=== PATIENT | female | born 1955 | race Caucasian/White ===

== ENCOUNTER 2016-05-23 16:14 | Inpatient (IN) ==
[2016-05-23] MEDS ORDERED: 0.9 % SODIUM CHLORIDE 1,000 ML IV ONE (16:54)
[2016-05-23] MEDS ORDERED: LEVOFLOXACIN 750 MG/150 ML BAG IV ONE (16:57)
[2016-05-23] MEDS ORDERED: VANCOMYCIN 1,000 MG in 0.9 % SODIUM CHLORIDE 250 ML IV ONE (16:58)
[2016-05-23 17:54] LABS: Basophils # (Auto) 0 K/mcL (0.0-0.3); Basophils % (Auto) 0 % (0.0-2.0); Eosinophils # (Auto) 0.1 K/mcL (0.0-0.7); Eosinophils % (Auto) 0.4 % (0.0-7.0); Granulocytes % (Auto) 92.3 % (38.0-78.0); Lymphocytes # (Auto) 0.6 K/mcL (1.5-4.8); Lymphocytes % (Auto) 3.2 % (15.5-49.0); Mean Cell Volume 81.1 fL (80.0-100.0); Mean Corpuscular HGB Conc 32.2 g/dL (31.0-36.0); Mean Corpuscular Hemoglobin 26.1 pg (26.0-34.0); Monocytes # (Auto) 0.7 K/mcL (0.1-0.9); Monocytes % (Auto) 4.1 % (1.0-9.0); Platelet Count 350 K/mcL (140-440); Red Cell Distribution Width 14.9 % (11.5-14.5)
[2016-05-23 18:21] LABS: ALT/SGPT 14 U/l (0-40); Albumin 3.6 gm/dL (3.2-5.2); Albumin/Globulin Ratio 0.9 (1.0-2.3); Alkaline Phosphatase 107 U/L (39-117); Blood Urea Nitrogen 15 mg/dl (8-23); C-Reactive Protein 22.7 mg/dl (0.0-0.8)
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
[2016-05-23] MEDS ORDERED: MAGNESIUM HYDROXIDE 30 ML ORAL.SUSP PO PRN (19:53)
[2016-05-23] MEDS ORDERED: ONDANSETRON 4 MG/2 ML VIAL IV PRN (19:53)
[2016-05-23] MEDS ORDERED: BISACODYL 10 MG SUPP.RECT PR PRN (19:53)
[2016-05-23] MEDS ORDERED: FLEETS ADULT ENEMA PR PRN (19:53)
[2016-05-23] MEDS ORDERED: BACLOFEN 10 MG TABLET PO PRN (21:00)
[2016-05-23] MEDS: HEPARIN 5,000 UNIT/ML VIAL SQ SCH (21:32)
[2016-05-23] MEDS: OXYBUTYNIN CHLORIDE 5 MG TABLET PO SCH (21:32)
[2016-05-23] MEDS: 0.9 % SODIUM CHLORIDE 1,000 ML IV SCH (21:32)
[2016-05-23] MEDS: 0.9 % SODIUM CHLORIDE 10 ML SYRINGE IV SCH (21:33)
[2016-05-23] MEDS ORDERED: IOPAMIDOL 100 ML BOTTLE IJ ONE (21:37)
[2016-05-23] MEDS: ACETAMINOPHEN 325 MG TABLET PO PRN (23:21)
[2016-05-24] MEDS: OXYBUTYNIN CHLORIDE 5 MG TABLET PO SCH ×4 (02:18→19:58)
[2016-05-24] MEDS: ACETAMINOPHEN 325 MG TABLET PO PRN (05:11)
[2016-05-24] MEDS: 0.9 % SODIUM CHLORIDE 10 ML SYRINGE IV SCH ×3 (05:13→23:14)
[2016-05-24] MEDS ORDERED: TETANUS AND DIPHTHERIA TOX IM ONE (07:39)
[2016-05-24] MEDS: POTASSIUM CHLORIDE 10 MEQ TABLET PO SCH ×3 (07:44→17:57)
--- NOTE | 2016-05-24 08:26 | Cat Scan Report ---
CLINICAL INFORMATION: Fever, cellulitis and abscess in the perineum FINDINGS: The pelvis was imaged following intravenous but no oral contrast from the mid lumbar spine to the mid femurs. Sagittal and coronal reformats were created. There is severe swelling of the right labia majora. There is marked thickening of the skin and edema of the subcutaneous tissues. There is milder edema and inflammation in the skin of the left labia. Within the deep soft tissues of the right labia there are multiple pockets of gas. Along the posterior aspect and adjacent to the inferior portion of the anus, there are small pockets of fluid. The largest is 1.5 x 5.5 cm and is located very close to the right side of the anus. No intrapelvic abscess is present. There are reactive lymph nodes in the right groin. Patient has a suprapubic catheter in the bladder. The bladder is completely decompressed. The uterus has been removed. Neither ovary is visualized. Patient has an ostomy in the left mid abdominal wall. There is no inflammation at the ostomy site, bowel obstruction or ileus. There is no ascites. 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 These Findings are chronic and stable. IMPRESSION: Multiloculated abscess located far posteriorly and deep in the right labia majora, extending to the right side of the anus. There is also gas in the labia indicating necrotizing fasciitis. Interpreted and Authenticated by: Fransisco Mcguire 05/24/16
--- NOTE | 2016-05-24 08:28 | XRay Report ---
HISTORY: Reason for Exam:cough, fever FINDINGS: Right diaphragm is moderately elevated. This is a chronic finding. The lungs are clear, without evidence of pneumonia. The heart size is normal. There are Lomas rods in the mid and lower thoracic spine extending down to the lumbar region. There has been no significant change since 07/19/09. IMPRESSION: Normal exam Interpreted and Authenticated by: Fransisco Mcguire 05/24/16
--- NOTE | 2016-05-24 08:29 | XRay Report ---
HISTORY: Reason for Exam:shoulder pain FINDINGS: No fracture, dislocation or degenerative change are present. There are no abnormal soft tissue calcifications. IMPRESSION: Normal shoulder Interpreted and Authenticated by: Fransisco Mcguire 05/24/16
[2016-05-24] MEDS ORDERED: LISINOPRIL 20 MG TABLET PO SCH (09:00)
[2016-05-24] MEDS ORDERED: amLODIPine 10 MG TABLET PO SCH (09:00)
[2016-05-24] MEDS ORDERED: ATENOLOL 50 MG TABLET PO SCH (09:00)
[2016-05-24] MEDS ORDERED: METOCLOPRAMIDE 10 MG/2 ML VIAL IV ONE (09:14)
[2016-05-24] MEDS ORDERED: FAMOTIDINE/PF 20 MG/2 ML VIAL IV ONE (09:15)
[2016-05-24 09:35] LABS: ALT/SGPT 12 U/l (0-40); Albumin 3.2 gm/dL (3.2-5.2); Alkaline Phosphatase 119 U/L (39-117); Bilirubin,Direct 0.2 mg/dL (0.0-0.3); Blood Urea Nitrogen 9 mg/dl (8-23); Gamma Glutamyl Transpeptidase 119 U/L (5-36); Magnesium 1.6 mg/dL (1.6-2.5); Phosphorous 3.3 mg/dL (2.7-4.5); Uric Acid 5.5 mg/dL (2.5-8.0)
[2016-05-24] MEDS: HEPARIN 5,000 UNIT/ML VIAL SQ SCH ×2 (10:11→19:59)
[2016-05-24] MEDS: CLINDAMYCIN 900 MG in DEXTROSE 5% IN WATER 50 ML IV SCH ×2 (10:21→22:01)
[2016-05-24] MEDS: 0.9 % SODIUM CHLORIDE 1,000 ML IV SCH ×2 (10:22→16:29)
--- NOTE | 2016-05-24 10:45 | Internal Med Progress Note ---
Medical - PN: Subj Patient information: Note initiated : 05/24/16 at 10:40 am Service Date, if different from initiated Date: [] Patient: Tierra Loco 61 y/o F admitted on 05/23/16 for fever, left shoulder pain. Chief Complaint: [] Interval history: This is a 61 yr female admitted to the hospital with fever, likely source of perineal cellutlitis. The patient seen examined , results reviwed with the patient The patient underwent a CT scan of the pelvis region yesterday, reported this AM. The CT notes cellulitis in the pernineal region, along with air in the subcutaneous tissue, with possibility of nectrotizing fascitits. The patient case was discussed with our surgeon Dr hutchins who prompltly evaluated the patient with myself, and determination to debride the wound today was made. The patient will be going to the OR this afternoon. The patient major medical issue is hypertension, she reports pre diabets, but no h/o ckd, cad, cva, chf, her ECG on admission was normal, x ray chest was also reported normal, has no reported cp, but has poor ET given her paraplegic status. nonetheless, the patient will need to be debrided as a emergent procedure. The patient reports chr back pain and left shoulder pain, back pain is a chr issue and resolves with baclofen, left shoulder pain is related to her rotator cuff, X ray shoulder is reported normal. - Constitutional Vitals: Vital Signs Temp Pulse Resp BP Pulse Ox 98.6 F 101 H 16 109/66 91 05/24/16 06:23 05/24/16 06:23 05/24/16 06:23 05/24/16 06:23 05/24/16 06:23 Period Temp Pulse Resp BP Sys/Jennings Pulse Ox Last 24 Hr 98.4 F-99.8 F 84-101 16-18 109-135/62-73 91-97 Intake and Output 05/23/16 05/24/16 05/24/16 21:59 05:59 13:59 Intake Total 1400 / 1400 962 / 962 Output Total 850 / 850 Balance 550 / 550 962 / 962 Weight 209 lb Intake & Output: Intake & Output 05/23/16 05/24/16 05/24/16 21:59 05:59 13:59 Intake Total 1400 / 1400 962 / 962 Output Total 850 / 850 Balance 550 / 550 962 / 962 Weight 209 lb Intake: IV 962 / 962 Sodium Chloride 0.9% 1, 962 / 962 000 ml @ 75 mls/hr IV . [id number] [facility] Rx#:[id number] Oral 1400 / 1400 Output: Urine Catheter Amount 850 / 850 - Head Head exam: Present: atraumatic, normal inspection - Eye Eye exam: Absent: periorbital swelling, periorbital tenderness, scleral icterus - ENT ENT exam: Present: mucous membranes dry, normal exam - Respiratory Respiratory exam: Present: normal respiratory exam. Absent: chest wall tenderness, respiratory distress, rhonchi, stridor, wheezes - Cardiovascular Cardiovascular exam: Present: normal rate and rhythm, +S1, +S2 - GI/Abdominal GI/Abdominal exam: Present: normal bowel sounds, soft. Absent: guarding, rigid , tenderness - Rectal Additional comments: large perianal wound, with a pocket of pus, Cellulitis / swelling and induration extending to the right labial fold, now also some induratio on the left side. - Neurological Exam Neurological exam: Present: alert (paraplegic at baseline, T 9-T10 level), CN II -XII intact, oriented X3 Medical - PN: Obj Da - Labs CBC & Chem 7: 05/24/16 04:55 05/24/16 08:04 Labs: Abnormal Lab Results 05/24/16 08:04 Sodium 132 L Carbon Dioxide 20 L Creatinine 0.5 L Glucose 128 H Calcium 8.4 L GGT 119 H Alkaline Phosphatase 119 H Lactate Dehydrogenase 296 H Meds: Medications Acetaminophen (Tylenol) 650 mg PO Q6HP PRN PRN Reason: PAIN/FEVER > 101 Last Admin: 05/24/16 05:11 Dose: 650 mg Amlodipine Besylate (Norvasc) 10 mg PO DAILY [facility] Last Admin: 05/24/16 10:25 Dose: 10 mg Atenolol (Tenormin) 25 mg PO DAILY [facility] Last Admin: 05/24/16 10:25 Dose: 25 mg Baclofen (Lioresal) 20 mg PO QIDP PRN PRN Reason: Pain Bisacodyl (Dulcolax) 10 mg OK Q2-3DAYS PRN PRN Reason: Constipation Heparin Sodium (Porcine) (Heparin) 5,000 unit SQ Q12 [facility] Last Admin: 05/24/16 10:11 Dose: Not Given Sodium Chloride (Sodium Chloride 0.9%) 1,000 mls @ 75 mls/hr IV .[id number] [facility] Last Admin: 05/24/16 10:22 Dose: 75 mls/hr Clindamycin Phosphate 900 mg/ (Dextrose) 56 mls @ 100 mls/hr IV Q8H [facility] Last Admin: 05/24/16 10:21 Dose: 100 mls/hr Lisinopril (Zestril) 40 mg PO DAILY [facility] Last Admin: 05/24/16 10:22 Dose: 40 mg Magnesium Hydroxide (Milk Of Magnesia) 30 ml PO DAILYP PRN PRN Reason: Constipation Ondansetron HCl (Zofran) 4 mg IV Q6HP PRN PRN Reason: Nausea And Vomiting Oxybutynin Chloride (Ditropan) 5 mg PO Q6H [facility] Last Admin: 05/24/16 07:44 Dose: 5 mg Potassium Chloride (Kdur) 10 meq PO TIDCC [facility] Last Admin: 05/24/16 07:44 Dose: 10 meq Sodium Biphosphate/Sodium Phosphate (Fleets Adult) 1 dose OK Q3-4DAYS PRN PRN Reason: Constipation Sodium Chloride (Saline Flush) 10 ml IV Q8 [facility] Last Admin: 05/24/16 05:13 Dose: Not Given Medical - PN: A/P - Time Spent With Patient Total time spent is greater than 50% in coordination of care (as documented) at patient's floor/unit and/or counseling patient: (1) Decubitus ulcer of perianal region, stage 3 Status: Acute Assessment and plan: Cellulitis and Necrotizing fascitis, Gen surg consulted, Plan for OR today On IV imipenum, Vancomycin, and clindamycin added today Tetanus vaccine ordered. IV fluids Current Visit: Yes (2) Hypertension, essential Status: Chronic Current Visit: No (3) Neurogenic bladder Status: Chronic Assessment and plan: spc in place continue same for now. Current Visit: No (4) Cough Status: Acute Assessment and plan: cxr is negative pt notes this from nasal drainage at times . Current Visit: Yes (5) Shoulder pain, left Status: Acute Assessment and plan: X ray shouder is reported neg h/o rotator cuff chronic injury PT/ for now. Current Visit: Yes Medical - PN: Qual - Stroke Symptom Onset Unknown: No - VTE Deep Vein Thrombosis/Pulmonary Embolism Present on Admission: No
[2016-05-24] MEDS ORDERED: LEVOFLOXACIN 500 MG/100 ML BAG IV ONE (13:45)
[2016-05-24] MEDS ORDERED: ONDANSETRON 4 MG/2 ML VIAL ONE (14:01)
[2016-05-24] MEDS ORDERED: DEXAMETHASONE 10 MG/ML VIAL ONE (14:01)
[2016-05-24] MEDS ORDERED: LIDOCAINE HCL/PF 100 MG/5 ML SYRINGE IV ONE (14:01)
[2016-05-24] MEDS ORDERED: MIDAZOLAM 5 MG/5 ML VIAL ONE (14:01)
[2016-05-24] MEDS ORDERED: PROPOFOL 200 MG/20 ML VIAL IV ONE (14:01)
[2016-05-24 14:29] LABS: Basophils # (Auto) 0 K/mcL (0.0-0.3); Basophils % (Auto) 0 % (0.0-2.0); Eosinophils # (Auto) 0 K/mcL (0.0-0.7); Eosinophils % (Auto) 0.1 % (0.0-7.0); Granulocytes % (Auto) 94.2 % (38.0-78.0); Lymphocytes # (Auto) 0.6 K/mcL (1.5-4.8); Lymphocytes % (Auto) 3.1 % (15.5-49.0); Mean Cell Volume 81.3 fL (80.0-100.0); Mean Corpuscular HGB Conc 32.3 g/dL (31.0-36.0); Mean Corpuscular Hemoglobin 26.2 pg (26.0-34.0); Monocytes # (Auto) 0.5 K/mcL (0.1-0.9); Monocytes % (Auto) 2.6 % (1.0-9.0); Platelet Count 317 K/mcL (140-440); RBC 4.04 M/mcL (4.00-5.20); Red Cell Distribution Width 15.5 % (11.5-14.5)
[2016-05-24] MEDS ORDERED: PROMETHAZINE 25 MG/ML VIAL IV PRN ×2 (14:29→16:07)
[2016-05-24] MEDS ORDERED: BENZOCAINE/MENTHOL 1 LOZENGE PO PRN ×2 (14:29→16:07)
[2016-05-24] MEDS ORDERED: FLUMAZENIL 0.1 MG/ML ML IV PRN ×2 (14:29→16:07)
[2016-05-24] MEDS ORDERED: LACTATED RINGERS 250 ML IV PRN ×2 (14:29→16:07)
[2016-05-24] MEDS ORDERED: METHOCARBAMOL 1,000 MG/10 ML VIAL IV PRN ×2 (14:29→16:07)
[2016-05-24] MEDS ORDERED: NALOXONE HCL 0.4 MG/ML VIAL IV PRN ×2 (14:29→16:07)
[2016-05-24] MEDS ORDERED: ONDANSETRON 4 MG/2 ML VIAL IV PRN ×3 (14:29→16:07)
[2016-05-24] MEDS ORDERED: MEPERIDINE 25 MG/ML SYRINGE IV PRN ×2 (14:29→16:07)
[2016-05-24] MEDS ORDERED: diphenhydrAMINE 50 MG/ML VIAL IV PRN ×2 (14:29→16:07)
[2016-05-24] MEDS ORDERED: fentaNYL 100 MCG/2 ML VIAL IV PRN ×2 (14:29→16:07)
[2016-05-24] MEDS ORDERED: IPRATROPIUM/ALBUTEROL 3 ML AMPUL.NEB NEB PRN ×2 (14:29→16:07)
[2016-05-24] MEDS ORDERED: LACTATED RINGERS 1,000 ML IV SCH ×2 (14:30→16:07)
[2016-05-24 14:45] LABS: Hemoglobin A1C 5.5 % HGB (4.0-6.0)
[2016-05-24] MEDS ORDERED: SODIUM HYPOCHLORITE TOPICAL ONE (14:46)
--- NOTE | 2016-05-24 15:27 | Brief Operative Note ---
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
[2016-05-24] MEDS ORDERED: FLEETS ADULT ENEMA PR PRN (16:07)
[2016-05-24] MEDS ORDERED: BISACODYL 10 MG SUPP.RECT PR PRN (16:07)
[2016-05-24] MEDS ORDERED: MAGNESIUM HYDROXIDE 30 ML ORAL.SUSP PO PRN (16:07)
[2016-05-24] MEDS ORDERED: BACLOFEN 10 MG TABLET PO PRN (16:07)
[2016-05-24] MEDS ORDERED: IMIPENEM/CILASTATIN SODIUM 1,000 MG in 0.9 % SODIUM CHLORIDE 250 ML IV SCH (16:15)
[2016-05-24] MEDS: IMIPENEM/CILASTATIN SODIUM 1,000 MG in 0.9 % SODIUM CHLORIDE 250 ML IV SCH ×2 (16:42→23:13)
[2016-05-24] MEDS ORDERED: SENNOSIDES 1 TABLET PO SCH (21:00)
[2016-05-24] MEDS: DOCUSATE SODIUM 100 MG CAPSULE PO SCH (22:00)
[2016-05-25] MEDS: OXYBUTYNIN CHLORIDE 5 MG TABLET PO SCH ×4 (01:34→21:26)
[2016-05-25] MEDS: CLINDAMYCIN 900 MG in DEXTROSE 5% IN WATER 50 ML IV SCH ×4 (04:29→21:26)
[2016-05-25] MEDS: 0.9 % SODIUM CHLORIDE 10 ML SYRINGE IV SCH ×3 (06:01→21:27)
[2016-05-25] MEDS: IMIPENEM/CILASTATIN SODIUM 1,000 MG in 0.9 % SODIUM CHLORIDE 250 ML IV SCH ×3 (06:01→21:56)
[2016-05-25 07:23] LABS: Basophils # (Auto) 0 K/mcL (0.0-0.3); Basophils % (Auto) 0 % (0.0-2.0); Eosinophils # (Auto) 0 K/mcL (0.0-0.7); Eosinophils % (Auto) 0 % (0.0-7.0); Granulocytes % (Auto) 94.2 % (38.0-78.0); Lymphocytes # (Auto) 0.8 K/mcL (1.5-4.8); Lymphocytes % (Auto) 3.9 % (15.5-49.0); Mean Cell Volume 81.7 fL (80.0-100.0); Mean Corpuscular HGB Conc 31.5 g/dL (31.0-36.0); Mean Corpuscular Hemoglobin 25.7 pg (26.0-34.0); Monocytes # (Auto) 0.4 K/mcL (0.1-0.9); Monocytes % (Auto) 1.9 % (1.0-9.0); Platelet Count 254 K/mcL (140-440); RBC 3.81 M/mcL (4.00-5.20); Red Cell Distribution Width 14.8 % (11.5-14.5)
[2016-05-25 07:42] LABS: ALT/SGPT 12 U/l (0-40); Albumin 2.9 gm/dL (3.2-5.2); Albumin/Globulin Ratio 1.1 (1.0-2.3); Alkaline Phosphatase 107 U/L (39-117); Bilirubin,Direct < 0.2 mg/dL (0.0-0.3); Blood Urea Nitrogen 8 mg/dl (8-23); Gamma Glutamyl Transpeptidase 117 U/L (5-36); Phosphorous 2.7 mg/dL (2.7-4.5); Uric Acid 5.7 mg/dL (2.5-8.0)
--- NOTE | 2016-05-25 08:31 | General Surgery Progress Note ---
Surgical - Auxillary Note - Subjective Patient Information: Note initiated : 05/25/16 at 8:28 am Service Date, if different from initiated Date: [] Patient: Tierra Loco 61 y/o F admitted on 05/23/16 for fever, left shoulder pain. Chief Complaint: Patient resting in bed. Says she is feeling ok except in need of her baclofen. Currently on 20 BID but Says she takes 280mg tid. denies chills. Vital Signs Temp Pulse Resp BP Pulse Ox 99.9 F H 82 18 105/44 96 05/25/16 08:00 05/25/16 08:00 05/25/16 08:00 05/25/16 08:00 05/25/16 08:00 Period Temp Pulse Resp BP Sys/Jennings Pulse Ox Last 24 Hr 97.8 F-99.9 F 79-97 15-25 82-130/39-69 90-97 Intake and Output 05/24/16 05/25/16 05/25/16 21:59 05:59 13:59 Intake Total 876 / 876 1876 / 1876 56 / 56 Output Total 1500 / 1500 Balance 856 / 856 376 / 376 56 / 56 Weight 211 lb 12.8 oz PE: Exam of perineum shows that wound is without new necrotic tissue. wound bed clean. edema of mons pubis persistent but erythema much improved. Wound repacked at bedside with saline moistened Kerlix roll guaze. CBC and Chem 7 05/25/16 04:10 05/25/16 04:10 A/P Fourniere's gangrene. Wound bed clean: no new necrosis on exam. Continue IV Abx.
[2016-05-25] MEDS ORDERED: amLODIPine 10 MG TABLET PO SCH (09:00)
[2016-05-25] MEDS ORDERED: ATENOLOL 50 MG TABLET PO SCH (09:00)
[2016-05-25] MEDS ORDERED: LISINOPRIL 20 MG TABLET PO SCH (09:00)
[2016-05-25] MEDS: 0.9 % SODIUM CHLORIDE 1,000 ML IV SCH ×2 (09:07→19:13)
[2016-05-25] MEDS ORDERED: VANCOMYCIN PER PHARMACY IV ONE (09:07)
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
[2016-05-25] MEDS: POTASSIUM CHLORIDE 10 MEQ TABLET PO SCH ×3 (09:14→17:40)
[2016-05-25] MEDS: BACLOFEN 10 MG TABLET PO SCH ×2 (09:15→15:06)
[2016-05-25] MEDS: DOCUSATE SODIUM 100 MG CAPSULE PO SCH ×2 (09:15→21:26)
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
[2016-05-25] MEDS: HEPARIN 5,000 UNIT/ML VIAL SQ SCH ×2 (09:53→21:26)
[2016-05-25] MEDS ORDERED: VANCOMYCIN 1,000 MG in 0.9 % SODIUM CHLORIDE 250 ML IV SCH (10:00)
[2016-05-25] MEDS ORDERED: BACLOFEN 10 MG TABLET PO PRN (17:54)
[2016-05-25] MEDS ORDERED: BISACODYL 10 MG SUPP.RECT PR PRN (18:17)
[2016-05-25] MEDS ORDERED: ONDANSETRON 4 MG/2 ML VIAL IV PRN (18:17)
[2016-05-25] MEDS ORDERED: MAGNESIUM HYDROXIDE 30 ML ORAL.SUSP PO PRN (18:17)
[2016-05-25] MEDS ORDERED: FLEETS ADULT ENEMA PR PRN (18:17)
[2016-05-25] MEDS ORDERED: SENNOSIDES 1 TABLET PO SCH (21:00)
[2016-05-25] MEDS: BACLOFEN 10 MG TABLET PO PRN (21:34)
[2016-05-25] MEDS: VANCOMYCIN 1,000 MG in 0.9 % SODIUM CHLORIDE 250 ML IV SCH (23:22)
[2016-05-26] MEDS: BACLOFEN 10 MG TABLET PO PRN ×3 (01:21→22:14)
[2016-05-26] MEDS: OXYBUTYNIN CHLORIDE 5 MG TABLET PO SCH ×4 (01:21→22:15)
[2016-05-26] MEDS: CLINDAMYCIN 900 MG in DEXTROSE 5% IN WATER 50 ML IV SCH ×2 (05:38→17:27)
[2016-05-26] MEDS: 0.9 % SODIUM CHLORIDE 10 ML SYRINGE IV SCH ×3 (05:39→22:24)
[2016-05-26] MEDS: IMIPENEM/CILASTATIN SODIUM 1,000 MG in 0.9 % SODIUM CHLORIDE 250 ML IV SCH ×3 (06:05→22:16)
[2016-05-26 07:56] LABS: Basophils # (Auto) 0 K/mcL (0.0-0.3); Basophils % (Auto) 0 % (0.0-2.0); Eosinophils # (Auto) 0 K/mcL (0.0-0.7); Eosinophils % (Auto) 0.1 % (0.0-7.0); Granulocytes % (Auto) 87.8 % (38.0-78.0); Lymphocytes # (Auto) 2.1 K/mcL (1.5-4.8); Lymphocytes % (Auto) 9.4 % (15.5-49.0); Mean Cell Volume 81.9 fL (80.0-100.0); Mean Corpuscular HGB Conc 31.8 g/dL (31.0-36.0); Monocytes # (Auto) 0.6 K/mcL (0.1-0.9); Monocytes % (Auto) 2.7 % (1.0-9.0); Platelet Count 279 K/mcL (140-440); Red Cell Distribution Width 14.9 % (11.5-14.5)
[2016-05-26] MEDS: 0.9 % SODIUM CHLORIDE 1,000 ML IV SCH ×3 (08:10→16:56)
[2016-05-26] MEDS: POTASSIUM CHLORIDE 10 MEQ TABLET PO SCH ×3 (08:12→17:56)
[2016-05-26] MEDS ORDERED: LISINOPRIL 20 MG TABLET PO SCH (09:00)
[2016-05-26] MEDS ORDERED: amLODIPine 10 MG TABLET PO SCH (09:00)
[2016-05-26] MEDS ORDERED: ATENOLOL 50 MG TABLET PO SCH (09:00)
[2016-05-26 09:08] LABS: ALT/SGPT 20 U/l (0-40); Albumin 3.1 gm/dL (3.2-5.2); Albumin/Globulin Ratio 1.3 (1.0-2.3); Alkaline Phosphatase 93 U/L (39-117); Bilirubin,Direct < 0.2 mg/dL (0.0-0.3); Blood Urea Nitrogen 17 mg/dl (8-23); Gamma Glutamyl Transpeptidase 98 U/L (5-36); Phosphorous 2.4 mg/dL (2.7-4.5); Uric Acid 5.6 mg/dL (2.5-8.0)
[2016-05-26] MEDS: DOCUSATE SODIUM 100 MG CAPSULE PO SCH ×2 (09:39→22:15)
[2016-05-26] MEDS: HEPARIN 5,000 UNIT/ML VIAL SQ SCH ×2 (09:40→22:16)
--- NOTE | 2016-05-26 10:51 | General Surgery Progress Note ---
Surgical - Auxillary Note - Subjective Patient Information: Note initiated : 05/26/16 at 10:45 am Service Date, if different from initiated Date: [] Patient: Tierra Loco 61 y/o F admitted on 05/23/16 for fever, left shoulder pain. Chief Complaint: Patient resting in bed. Feeling well. Complains of headache and would like tylenol for this. Baclofen dose adjusted last night. She was initially confused about her dose and mis-reported this after surgery. Vital Signs Temp Pulse Resp BP Pulse Ox 98.3 F 78 16 136/59 95 05/26/16 08:00 05/26/16 08:00 05/26/16 08:00 05/26/16 08:00 05/26/16 08:00 Period Temp Pulse Resp BP Sys/Jennings Pulse Ox Last 24 Hr 98.2 F-99.9 F 71-89 14-18 89-142/51-93 90-97 Intake and Output 05/25/16 05/26/16 05/26/16 21:59 05:59 13:59 Intake Total 1647 / 1647 1102 / 1102 296 / 296 Output Total 600 / 600 1601 / 1601 Balance 1047 / 1047 -499 / -499 296 / 296 Weight 212 lb PE: Patient in no distress. Alert and oriented and appropriate in conversation. Focused exam on the wound shows wound bed remains clean. No new tissue necrosis noted and drainage serous on dressing. Wound bed depth at about 12.5cm into tunnel that extends anteriorly in soft tissue of labia and in depth. Wound redressed with saline moistened to dry AMD guaze packing. Edema of mons and labia persistent but erythema resolving slowly and no crepitus on palpation of these areas. CBC and Chem 7 05/26/16 06:15 05/26/16 06:15 A/P: Right labial wound: s/p debridement. Continue current therapy with antibiotics and moist to dry guaze dressings. May benefit from wound VAC if wound remains clean enough to place but either way will need prolonged wound care. Wound cx. show staph Aureus: susceptibilities pending. Pathology is pending: wound margin sent at surgery to rule out malignancy
[2016-05-26] MEDS ORDERED: ACETAMINOPHEN 325 MG TABLET PO PRN (10:56)
[2016-05-26] MEDS: VANCOMYCIN 1,000 MG in 0.9 % SODIUM CHLORIDE 250 ML IV SCH (11:24)
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
[2016-05-26] MEDS ORDERED: BISACODYL 10 MG SUPP.RECT PR PRN (14:07)
[2016-05-26] MEDS ORDERED: MAGNESIUM HYDROXIDE 30 ML ORAL.SUSP PO PRN (14:07)
[2016-05-26] MEDS ORDERED: FLEETS ADULT ENEMA PR PRN (14:07)
[2016-05-26] MEDS: ACETAMINOPHEN 325 MG TABLET PO PRN ×2 (14:26→22:17)
[2016-05-26] MEDS: metroNIDAZOLE 500 MG/100 ML BAG IV SCH ×2 (16:16→22:16)
[2016-05-26] MEDS ORDERED: IMIPENEM/CILASTATIN SODIUM 500 MG VIAL IV ONE (22:01)
[2016-05-26] MEDS: SENNOSIDES 1 TABLET PO SCH (22:25)
[2016-05-27] MEDS: OXYBUTYNIN CHLORIDE 5 MG TABLET PO SCH ×4 (02:25→21:49)
[2016-05-27 05:31] LABS: Basophils # (Auto) 0 K/mcL (0.0-0.3); Basophils % (Auto) 0.1 % (0.0-2.0); Eosinophils # (Auto) 0.1 K/mcL (0.0-0.7); Eosinophils % (Auto) 0.8 % (0.0-7.0); Granulocytes % (Auto) 84.2 % (38.0-78.0); Lymphocytes % (Auto) 11.4 % (15.5-49.0); Mean Cell Volume 80.3 fL (80.0-100.0); Mean Corpuscular HGB Conc 32.4 g/dL (31.0-36.0); Monocytes # (Auto) 0.6 K/mcL (0.1-0.9); Monocytes % (Auto) 3.5 % (1.0-9.0); Platelet Count 296 K/mcL (140-440); RBC 4.49 M/mcL (4.00-5.20); Red Cell Distribution Width 15.1 % (11.5-14.5)
[2016-05-27] MEDS: IMIPENEM/CILASTATIN SODIUM 1,000 MG in 0.9 % SODIUM CHLORIDE 250 ML IV SCH ×3 (05:33→23:26)
[2016-05-27] MEDS: 0.9 % SODIUM CHLORIDE 10 ML SYRINGE IV SCH ×3 (06:02→23:19)
[2016-05-27] MEDS: 0.9 % SODIUM CHLORIDE 1,000 ML IV SCH ×3 (06:03→18:32)
[2016-05-27 06:09] LABS: ALT/SGPT 20 U/l (0-40); Albumin/Globulin Ratio 0.9 (1.0-2.3); Alkaline Phosphatase 105 U/L (39-117); Bilirubin,Direct < 0.2 mg/dL (0.0-0.3); Blood Urea Nitrogen 18 mg/dl (8-23); Gamma Glutamyl Transpeptidase 92 U/L (5-36); Magnesium 1.8 mg/dL (1.6-2.5); Phosphorous 2.7 mg/dL (2.7-4.5); Uric Acid 5.9 mg/dL (2.5-8.0)
[2016-05-27] MEDS: ONDANSETRON 4 MG/2 ML VIAL IV PRN ×2 (06:42→21:57)
[2016-05-27] MEDS: metroNIDAZOLE 500 MG/100 ML BAG IV SCH ×3 (06:42→21:48)
--- NOTE | 2016-05-27 06:43 | Operative Note ---
DATE OF OPERATION: 05/24/2016 PREOPERATIVE DIAGNOSIS: Perineal abscess with Ludivina's gangrene. POSTOPERATIVE DIAGNOSIS: Perineal abscess with Ludivina's gangrene. PROCEDURE PERFORMED: Debridement of perineal abscess. SURGEON: Karo Motta MD INDICATIONS FOR PROCEDURE: The patient is a 61-year-old woman who is admitted to the hospital last evening with a diagnosis of fever. She had an elevated white blood cell count and elevated CRP on admission. On exam, she was noted to have erythema and edema over the perineal region with an open wound where pus was coming from and the peritoneum posteriorly on the right labia with a caveat that extends anteriorly and necrotic tissue within the wound opening. On CT scan imaging she is noted to have loculated abscess within the right labia with air noted within the soft tissues of this region. She is brought to the operating room for debridement. DESCRIPTION OF PROCEDURE: After obtaining consent, the patient was taken to the operating room where a time-out was taken to confirm that she was here for the above-stated procedure. She was placed in the supine position on the operating table and general endotracheal anesthesia was induced. She was given antibiotics preoperatively. She was placed in lithotomy position. The perineum was prepped and draped in a sterile manner. The opening within the right posterior labia was palpated with a finger and this led directly into the cavity that extended anteriorly along the labia with palpable loculations of subcutaneous tissue. Pus was contained within this cavity and culture swab was taken. Next, the cavity was drained of the pus using a Yankauer suction placed into the cavity. The wound was then probed using my finger and it was noted to extend for the full length of the labia anteriorly. In order to adequately debride this area, which was lined with necrotic tissue as seen at the entrance site of the wound, the wound was opened in a linear fashion anteriorly for the length of the cavity. In so doing, the subcutaneous tissues, which were quite edematous were noted to be mostly viable until the edges of the cavity were reached. All along the cavity was lined with necrotic tissue. This tissue was debrided sharply and with electrocautery until bleeding tissue was encountered. In the area of the posterior labia near where the ischial prominence is and the site of this chronic wound tissue debridement was taken down to the level of connective tissue at this point until viable tissue was encountered. During this debridement the vagina was inspected and found to have no communication or mass extending between it and the right labial abscess cavity. The tissue debrided from the cavity wall was sent to pathology as a specimen of the lining of the abscess cavity. Upon completion of debridement an additional specimen was taken from the wound margin and the appearance of the wound margin was very thick with rolled edges and firm concerning for more than just chronic inflammation. This was sent as a separate specimen. After the wound was debrided, it was pulse lavaged with saline. Next, the anus was inspected by finger palpation revealing no masses and no sign of communication of the anus to the abscess cavity that had been debrided. Additionally, there was normal feeling soft tissue between the anus and the opening at the posterior right labia. Gloves were changed. The wound was again irrigated and this time, a second irrigation done with Dakin solution. Next, the residual cavity was inspected and small areas of bleeding were controlled with electrocautery. The wound was then packed with Dakin-moistened Kerlix roll to fill the space of the entire wound and covered with an ABD pad and a [id number] dressing. Dressing was held in place with post-surgical panties. ESTIMATED BLOOD LOSS: 20 mL SPECIMENS: 1. Wound culture. 2. Abscess cavity lining for pathology. 3. Wound margin for pathology. RC:elda Job ID: [id number] Doc ID: [id number] Karo Motta MD
--- NOTE | 2016-05-27 09:11 | General Surgery Progress Note ---
Surgical - Auxillary Note - Subjective Patient Information: Note initiated : 05/27/16 at 9:02 am Service Date, if different from initiated Date: [] Patient: Tierra Loco 61 y/o F admitted on 05/23/16 for fever, left shoulder pain. Chief Complaint: Patient reports some nausea this morning with breakfast. Denies emesis. Denies chills. Vital Signs Temp Pulse Resp BP Pulse Ox 98.7 F 84 18 161/77 95 05/27/16 07:51 05/27/16 07:51 05/27/16 07:51 05/27/16 07:51 05/27/16 07:51 Period Temp Pulse Resp BP Sys/Jennings Pulse Ox Last 24 Hr 98.5 F-99.3 F 68-84 18-24 132-162/51-79 91-95 Intake and Output 05/26/16 05/27/16 05/27/16 21:59 05:59 13:59 Intake Total 1550 / 1550 1390 / 1390 Output Total 2675 / 2675 1999 Balance -1125 / -1125 -610 / -610 Weight 211 lb 1.6 oz PE: Focused exam of perineal wound shows serous drainage on dressing. No pus and no exudate. Wound bed clean with viable tissue but minimal granulation tissue at this time. Wound re-dressed with saline moistened AMD guaze in moist to dry dressing. CBC and Chem 7 05/27/16 04:00 05/27/16 04:00 A/P: Wound stable in appearance. No new necrosis noted. Continue dressing changes daily to entire bed which includes some tunneling anteriorly along soft tissues of labia. If wound remains clean can consider VAC placement. Case discussed with Dr. Daly who will be coming back on service and assuming management of patient's wound.
[2016-05-27] MEDS: HEPARIN 5,000 UNIT/ML VIAL SQ SCH ×2 (09:21→21:48)
[2016-05-27] MEDS: amLODIPine 10 MG TABLET PO SCH (09:22)
[2016-05-27] MEDS: POTASSIUM CHLORIDE 10 MEQ TABLET PO SCH ×4 (09:23→18:25)
[2016-05-27] MEDS: ATENOLOL 50 MG TABLET PO SCH (09:23)
[2016-05-27] MEDS: LISINOPRIL 20 MG TABLET PO SCH (09:23)
[2016-05-27] MEDS: BACLOFEN 10 MG TABLET PO PRN (09:30)
[2016-05-27] MEDS: DOCUSATE SODIUM 100 MG CAPSULE PO SCH ×2 (09:32→21:48)
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
[2016-05-27] MEDS: ACETAMINOPHEN 325 MG TABLET PO PRN ×2 (14:41→21:48)
[2016-05-27] MEDS: SENNOSIDES 1 TABLET PO SCH (21:49)
[2016-05-28] MEDS: OXYBUTYNIN CHLORIDE 5 MG TABLET PO SCH ×4 (02:06→20:18)
[2016-05-28] MEDS: metroNIDAZOLE 500 MG/100 ML BAG IV SCH ×3 (04:57→21:52)
[2016-05-28] MEDS: ACETAMINOPHEN 325 MG TABLET PO PRN ×2 (04:57→20:18)
[2016-05-28] MEDS: BACLOFEN 10 MG TABLET PO PRN ×3 (04:57→14:13)
[2016-05-28 05:22] LABS: Basophils # (Auto) 0 K/mcL (0.0-0.3); Basophils % (Auto) 0.1 % (0.0-2.0); Eosinophils # (Auto) 0.2 K/mcL (0.0-0.7); Eosinophils % (Auto) 0.8 % (0.0-7.0); Granulocytes % (Auto) 84.4 % (38.0-78.0); Lymphocytes % (Auto) 10.9 % (15.5-49.0); Mean Cell Volume 81.1 fL (80.0-100.0); Mean Corpuscular HGB Conc 31.9 g/dL (31.0-36.0); Mean Corpuscular Hemoglobin 25.8 pg (26.0-34.0); Monocytes # (Auto) 0.7 K/mcL (0.1-0.9); Monocytes % (Auto) 3.8 % (1.0-9.0); Platelet Count 281 K/mcL (140-440); Red Cell Distribution Width 15.1 % (11.5-14.5)
[2016-05-28 05:53] LABS: ALT/SGPT 16 U/l (0-40); Albumin 2.9 gm/dL (3.2-5.2); Albumin/Globulin Ratio 0.9 (1.0-2.3); Alkaline Phosphatase 89 U/L (39-117); Bilirubin,Direct < 0.2 mg/dL (0.0-0.3); Blood Urea Nitrogen 11 mg/dl (8-23); Gamma Glutamyl Transpeptidase 85 U/L (5-36); Magnesium 1.8 mg/dL (1.6-2.5); Phosphorous 3.9 mg/dL (2.7-4.5); Uric Acid 5.3 mg/dL (2.5-8.0)
[2016-05-28] MEDS: 0.9 % SODIUM CHLORIDE 10 ML SYRINGE IV SCH ×3 (05:58→20:19)
[2016-05-28] MEDS: IMIPENEM/CILASTATIN SODIUM 1,000 MG in 0.9 % SODIUM CHLORIDE 250 ML IV SCH ×3 (06:01→23:28)
[2016-05-28] MEDS: 0.9 % SODIUM CHLORIDE 1,000 ML IV SCH ×2 (06:06→21:44)
[2016-05-28] MEDS: POTASSIUM CHLORIDE 10 MEQ TABLET PO SCH ×3 (09:21→14:17)
[2016-05-28] MEDS: ATENOLOL 50 MG TABLET PO SCH (09:22)
[2016-05-28] MEDS: amLODIPine 10 MG TABLET PO SCH (09:22)
[2016-05-28] MEDS: HEPARIN 5,000 UNIT/ML VIAL SQ SCH ×2 (09:22→20:18)
[2016-05-28] MEDS: LISINOPRIL 20 MG TABLET PO SCH (09:22)
[2016-05-28] MEDS: DOCUSATE SODIUM 100 MG CAPSULE PO SCH ×2 (09:52→20:19)
--- NOTE | 2016-05-28 11:35 | General Surgery Progress Note ---
Subjective Patient reports: voiding w/o difficulty Narrative: Note initiated : 05/28/16 at 11:32 am Service Date, if different from initiated Date: [] Patient: Tierra Loco 61 y/o F admitted on 05/23/16 for Buttock Wound , Cellulitis, Sepsis. Chief Complaint: [patient is doing well. She has no other difficulties. I was contacted by Dr. Wagner barraza he will evaluate the patient laterto see if she is a candidate for hyperbaric oxygen therapy. She is notified of this she is agreeable. She has no other concerns.] Objective Temp Pulse Resp BP Pulse Ox 98.7 F 73 18 148/72 95 05/28/16 08:00 05/28/16 08:00 05/28/16 08:00 05/28/16 08:00 05/28/16 08:00 - Additional Data Intake & Output - Last 24 hours: Intake & Output 05/26/16 05/27/16 05/28/16 05/29/16 05:59 05:59 05:59 05:59 Intake Total 3805 / 3805 3976 / 3976 2590 / 2590 Output Total 2301 / 2301 5675 / 5675 5300 / 5300 Balance 1504 / 1504 -1699 / -1699 -2710 / -2710 Weight 212 lb 211 lb 1.6 oz 205 lb 8 oz - General physical appearance chronically ill, obese - Neck no venous distension - Respiratory clear to auscultation - Cardiovascular Cardiovascular exam: Present: normal rate and rhythm, RRR, +S1, +S2 - Abdomen soft, non tender, bowel sounds (obese abdomen with good active bowel sounds; stoma in left lower quadrant;suprapubic catheter is intact. There is no tenderness.) - Integumentary other (perineal wound not evaluated since she will be evaluated by the wound care team later today. Disposition will be made at that time) - Psychiatric oriented to time, oriented to person, oriented to place, speech is normal, memory intact - Labs 05/28/16 03:00 05/28/16 03:00 Diabetes panel 05/28/16 Range/Units 03:00 Sodium 134 (133-145) mmol/L Potassium 4.1 (3.3-5.1) mmol/L Chloride 95 L (96-108) mmol/L Carbon Dioxide 24 (22-30) mmol/L BUN 11 (8-23) mg/dl Creatinine 0.4 L (0.6-1.1) mg/dl Glucose 102 (70-105) mg/dL Calcium 8.7 (8.6-10.4) mg/dl AST 19 (0-37) U/l ALT 16 (0-40) U/l Alkaline Phosphatase 89 (39-117) U/L Total Protein 6.1 (5.9-8.4) gm/dL Albumin 2.9 L (3.2-5.2) gm/dL Triglycerides 170 H (<150) mg/dl Calcium panel 05/28/16 Range/Units 03:00 Calcium 8.7 (8.6-10.4) mg/dl Phosphorus 3.9 (2.7-4.5) mg/dL Albumin 2.9 L (3.2-5.2) gm/dL Pituitary panel 05/28/16 Range/Units 03:00 Sodium 134 (133-145) mmol/L Potassium 4.1 (3.3-5.1) mmol/L Chloride 95 L (96-108) mmol/L Carbon Dioxide 24 (22-30) mmol/L BUN 11 (8-23) mg/dl Creatinine 0.4 L (0.6-1.1) mg/dl Glucose 102 (70-105) mg/dL Calcium 8.7 (8.6-10.4) mg/dl Adrenal panel 05/28/16 Range/Units 03:00 Sodium 134 (133-145) mmol/L Potassium 4.1 (3.3-5.1) mmol/L Chloride 95 L (96-108) mmol/L Carbon Dioxide 24 (22-30) mmol/L BUN 11 (8-23) mg/dl Creatinine 0.4 L (0.6-1.1) mg/dl Glucose 102 (70-105) mg/dL Calcium 8.7 (8.6-10.4) mg/dl Total Bilirubin 0.2 (0.0-1.0) mg/dL AST 19 (0-37) U/l ALT 16 (0-40) U/l Alkaline Phosphatase 89 (39-117) U/L Total Protein 6.1 (5.9-8.4) gm/dL Albumin 2.9 L (3.2-5.2) gm/dL Medical - PN: A/P - Time Spent With Patient Total time spent is greater than 50% in coordination of care (as documented) at patient's floor/unit and/or counseling patient: - Narrative A/P Narrative: perineal necrotizing fasciitis presently improving on treatment Decubitus ulcer presently clean T10 paraplegia Hypertension Plan--we'll wait for definitive decision by Continue present antibiotics treatment
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
--- NOTE | 2016-05-28 14:37 | Surgical Pathology Report ---
HISTOLOGY SPECIMEN MICROSCOPIC DIAGNOSIS SPECIMEN A - SOFT TISSUE, RIGHT PERITONEAL ABSCESS CAVITY, BIOPSY: -- DENSE ACUTE/CHRONIC INFLAMMATION WITH HEMORRHAGE, NECROSIS, FIBROSIS AND GRANULATION TISSUE. -- NO NEOPLASIA OR MALIGNANCY IDENTIFIED. SPECIMEN B - SOFT TISSUE, RIGHT PERITONEAL WOUND MARGIN, BIOPSY: -- DENSE ACUTE/CHRONIC INFLAMMATION WITH HEMORRHAGE, NECROSIS, FIBROSIS AND GRANULATION TISSUE. -- NO NEOPLASIA OR MALIGNANCY IDENTIFIED. (ACP:adj) CLINICAL HISTORY Right perineal wound. PROCEDURAL IMPRESSION Perineal abscess with Ludivina's gangrene. GROSS DESCRIPTION Specimen A: Received in formalin, labeled abscess cavity, are multiple gilmore-manrique tissue fragments in aggregate 7.2 x 7.0 x 1.5 cm. Cut surfaces are manrique-brown. Switchboard Wirer sections submitted in two cassettes. Specimen B: Received in formalin, labeled wound margin, is a firm gilmore-manrique piece of tissue. It is 2.2 x 2.4 x 1.3 cm. The possible margin is inked black. Cut surfaces are manrique-gilmore. Switchboard Wirer sections submitted in two cassettes with the ends in B1 and random sections in B2. (SCB:ada) Electronically Signed by: Rich Mcguire M.D.
--- NOTE | 2016-05-28 18:37 | General Surgery Consult Note ---
History of Present Illness Patient information: Note initiated : 05/28/16 at 6:34 pm Service Date, if different from initiated Date: [] Patient: Tierra Loco 61 y/o F admitted on 05/23/16 for Buttock Wound , Cellulitis, Sepsis. Chief Complaint: [] Consult date: 05/28/16 (wound management) Reason for consult: wound care Requesting physician: Negar Cuellar History of present illness: Consult requested by Negar Hendricks. Hospitalist Physician Reason; ON GOING wound care management, S/P debridement earlier by Dr. Joe Motta. Patient is a 61 year old paraplegic lady, established patient at [facility]. Admitted emergently over the hol period with fever. Underwent OR debridement of a long standing chronically infected / contaminated and colonized Right ischial pressure ulcer, over three days ago. Patient has a functioning colostomy with well formed stool and supra pubic catheter draining clear urine. She has other pressure ulcers over knee and feet covered with foam dressings. She now has a specialized bed. Patient did NOT have Ludivina Gangrene. Medications and Allergies Home Medications Medication Instructions Recorded Confirmed Type Atenolol [Tenormin] 25 mg PO DAILY 02/24/15 05/23/16 History Baclofen 20 mg PO QIDP 02/24/15 05/23/16 History Calcium Carb/Vitamin D3/Vit K1 1 tab PO DAILY 02/24/15 05/23/16 History [Calcium-Vit D3-Vit K Soft Chew] Lisinopril [Zestril] 40 mg PO DAILY 02/24/15 05/23/16 History Multivitamin [Men's Multi-Vitamin] 1 each PO DAILY 02/24/15 05/23/16 History Vitamin B Complex Vit C No.3 [B 1 each PO DAILY 02/24/15 05/23/16 History Complex with Vitamin C] amLODIPine [Norvasc] 10 mg PO DAILY 02/24/15 05/23/16 History Potassium Chloride [Kdur] 10 meq PO TIDCC 02/26/15 05/23/16 History Ascorbic Acid [Vitamin C with Victoria 500 mg PO QDAY 05/23/16 05/23/16 History Hips] Ferrous Gluconate [Fergon] 240 mg PO DAILY 05/23/16 05/23/16 History Allergies Allergy/AdvReac Type Severity Reaction Status Date / Time aspirin AdvReac Mild Nausea/Vomi Verified 04/08/16 10:04 ting iron [IRON] AdvReac Mild Nausea/Vomi Verified 04/08/16 10:04 ting Sulfa (Sulfonamide AdvReac Mild Nausea/Vomi Verified 04/08/16 10:04 Antibiotics) ting [SULFA (SULFONAMIDE ANTIBIOTICS)] Exam Temp Pulse Resp BP Pulse Ox 9 F L 66 20 133/68 95 05/28/16 16:00 05/28/16 16:00 05/28/16 16:00 05/28/16 16:00 05/28/16 16:00 - General physical appearance well developed, well nourished, no distress, no pain, other (Morbid obese) - Eyes PERRL, normal ocular movement - ENT normal pinna, normal nares, normal mucosa, no congestion - Head Head exam IM: Present: atraumatic, normal inspection, normocephalic - Neck no masses, no bruits, trachea midline, no lymphadectomy, no venous distension - Cardiovascular Cardiovascular exam IM: Present: normal rate and rhythm - Respiratory normal expansion, normal respiratory effort, clear to auscultation - Abdomen Abdomen: Present: soft, non tender, tender, bowel sounds, surgical scars Hernia: Present: none - Genitourinary Present: perineal/vulvar lesions, other (Supra pubic catheter. RIGHT ICHIAL and perianal OPEN wound which trackes distally along back of right thigh ) - Rectum Rectum: Present: no bleeding (No sphinter tone), other (No sphinter tone . NO crepitus , ) - Integumentary Present: other (Chronic open pressure ulcer wound right ischial area EXTENDING along right posterior thigh. Colonized / contaminated and NO foul odor or drainage) - Neurologic Present: other (Normal upper body and BUE but chronic wasting and deconditioning changes due to traumatic paraplegia ) - Psychiatric Present: oriented to time, oriented to person, oriented to place, speech is normal, memory intact Results - Labs 05/28/16 03:00 05/28/16 03:00 Abnormal lab results 05/28/16 05/28/16 Range/Units 03:00 03:00 WBC 18.6 H (4.5-11.0) K/mcL Hgb 11.4 L (12.0-15.0) g/dL Hct 35.7 L (36.0-48.0) % MCH 25.8 L (26.0-34.0) pg RDW 15.1 H (11.5-14.5) % Gran % 84.4 H (38.0-78.0) % Lymph % (Auto) 10.9 L (15.5-49.0) % Gran # 15.7 H (1.8-8.0) K/mcL Chloride 95 L (96-108) mmol/L Creatinine 0.4 L (0.6-1.1) mg/dl GGT 85 H (5-36) U/L Lactate Dehydrogenase 360 H (94-250) U/L Albumin 2.9 L (3.2-5.2) gm/dL Albumin/Globulin Ratio 0.9 L (1.0-2.3) Triglycerides 170 H (<150) mg/dl Diabetes panel 05/28/16 Range/Units 03:00 Sodium 134 (133-145) mmol/L Potassium 4.1 (3.3-5.1) mmol/L Chloride 95 L (96-108) mmol/L Carbon Dioxide 24 (22-30) mmol/L BUN 11 (8-23) mg/dl Creatinine 0.4 L (0.6-1.1) mg/dl Glucose 102 (70-105) mg/dL Calcium 8.7 (8.6-10.4) mg/dl AST 19 (0-37) U/l ALT 16 (0-40) U/l Alkaline Phosphatase 89 (39-117) U/L Total Protein 6.1 (5.9-8.4) gm/dL Albumin 2.9 L (3.2-5.2) gm/dL Triglycerides 170 H (<150) mg/dl Calcium panel 05/28/16 Range/Units 03:00 Calcium 8.7 (8.6-10.4) mg/dl Phosphorus 3.9 (2.7-4.5) mg/dL Albumin 2.9 L (3.2-5.2) gm/dL Pituitary panel 05/28/16 Range/Units 03:00 Sodium 134 (133-145) mmol/L Potassium 4.1 (3.3-5.1) mmol/L Chloride 95 L (96-108) mmol/L Carbon Dioxide 24 (22-30) mmol/L BUN 11 (8-23) mg/dl Creatinine 0.4 L (0.6-1.1) mg/dl Glucose 102 (70-105) mg/dL Calcium 8.7 (8.6-10.4) mg/dl Adrenal panel 05/28/16 Range/Units 03:00 Sodium 134 (133-145) mmol/L Potassium 4.1 (3.3-5.1) mmol/L Chloride 95 L (96-108) mmol/L Carbon Dioxide 24 (22-30) mmol/L BUN 11 (8-23) mg/dl Creatinine 0.4 L (0.6-1.1) mg/dl Glucose 102 (70-105) mg/dL Calcium 8.7 (8.6-10.4) mg/dl Total Bilirubin 0.2 (0.0-1.0) mg/dL AST 19 (0-37) U/l ALT 16 (0-40) U/l Alkaline Phosphatase 89 (39-117) U/L Total Protein 6.1 (5.9-8.4) gm/dL Albumin 2.9 L (3.2-5.2) gm/dL All other labs normal. Assessment and Plan (1) Decubitus ulcer of perianal region, stage 3 Chronic infected pressure ulcer ischial area. See orders for on going wound care, Will follow patient while she is in hospital. Status: Chronic Priority: Low
[2016-05-28] MEDS: GENTAMICIN SULFATE 40 MG, CLINDAMYCIN 300 MG, BACITRACIN 25,000 UNIT in SODIUM CHLORIDE... IRR SCH (20:17)
[2016-05-28] MEDS: SENNOSIDES 1 TABLET PO SCH (20:19)
[2016-05-29] MEDS: POTASSIUM CHLORIDE 10 MEQ TABLET PO SCH ×4 (00:25→17:15)
[2016-05-29] MEDS: ONDANSETRON 4 MG/2 ML VIAL IV PRN (00:26)
[2016-05-29] MEDS: 0.9 % SODIUM CHLORIDE 1,000 ML IV SCH ×2 (01:29→10:03)
[2016-05-29] MEDS: OXYBUTYNIN CHLORIDE 5 MG TABLET PO SCH ×4 (02:19→20:37)
[2016-05-29 03:58] LABS: Basophils # (Auto) 0 K/mcL (0.0-0.3); Basophils % (Auto) 0 % (0.0-2.0); Eosinophils # (Auto) 0.3 K/mcL (0.0-0.7); Eosinophils % (Auto) 1.4 % (0.0-7.0); Granulocytes % (Auto) 83.8 % (38.0-78.0); Lymphocytes # (Auto) 2.4 K/mcL (1.5-4.8); Mean Cell Volume 81.2 fL (80.0-100.0); Mean Corpuscular HGB Conc 31.6 g/dL (31.0-36.0); Mean Corpuscular Hemoglobin 25.7 pg (26.0-34.0); Monocytes # (Auto) 0.8 K/mcL (0.1-0.9); Monocytes % (Auto) 3.8 % (1.0-9.0); Platelet Count 277 K/mcL (140-440); RBC 4.33 M/mcL (4.00-5.20); Red Cell Distribution Width 15.1 % (11.5-14.5)
[2016-05-29 04:06] LABS: ALT/SGPT 17 U/l (0-40); Albumin 2.9 gm/dL (3.2-5.2); Alkaline Phosphatase 85 U/L (39-117); Bilirubin,Direct < 0.2 mg/dL (0.0-0.3); Blood Urea Nitrogen 10 mg/dl (8-23); Gamma Glutamyl Transpeptidase 80 U/L (5-36); Magnesium 1.7 mg/dL (1.6-2.5); Phosphorous 3.2 mg/dL (2.7-4.5)
[2016-05-29] MEDS: metroNIDAZOLE 500 MG/100 ML BAG IV SCH ×3 (05:25→22:39)
[2016-05-29] MEDS: 0.9 % SODIUM CHLORIDE 10 ML SYRINGE IV SCH ×3 (05:26→22:42)
[2016-05-29] MEDS: BACLOFEN 10 MG TABLET PO PRN ×2 (05:35→17:30)
[2016-05-29] MEDS: ACETAMINOPHEN 325 MG TABLET PO PRN ×3 (05:36→20:37)
[2016-05-29] MEDS ORDERED: VANCOMYCIN PER PHARMACY IV ONE (07:44)
[2016-05-29] MEDS: IMIPENEM/CILASTATIN SODIUM 1,000 MG in 0.9 % SODIUM CHLORIDE 250 ML IV SCH ×3 (07:47→23:55)
--- NOTE | 2016-05-29 09:59 | General Surgery Progress Note ---
Subjective Narrative: Note initiated : 05/29/16 at 9:57 am Service Date, if different from initiated Date: [] Patient: Tierra Loco 61 y/o F admitted on 05/23/16 for Buttock Wound , Cellulitis, Sepsis. Chief Complaint: [] Patient seen on rounds with wound nurse and Floor nurse. Patient does NOT voice any specific systemic complaint. Dressings not changed this morning. Objective Temp Pulse Resp BP Pulse Ox 98.3 F 73 18 160/66 97 05/29/16 07:43 05/29/16 07:43 05/29/16 07:43 05/29/16 07:43 05/29/16 07:43 AVSS. Comfortable. NO distress. Good / Clear Cough. Soft abdomen . BS present. Patient was log rolled and Perineal dressings changede and demonstrated to Floor nurse. Recommend wound care and dressing changes two or more times a day. Labs: WBC 21 K. Probably multi factorial. Other labs are unremarkable. - Additional Data Intake & Output - Last 24 hours: Intake & Output 05/27/16 05/28/16 05/29/16 05/30/16 05:59 05:59 05:59 05:59 Intake Total 3976 / 3976 3690 / 3690 1750 / 1750 Output Total 5675 / 5675 5300 / 5300 900 / 900 Balance -1699 / -1699 -1610 / -1610 850 / 850 Weight 211 lb 1.6 oz 205 lb 8 oz 205 lb - Labs 05/29/16 02:50 05/29/16 02:50 Diabetes panel 05/29/16 Range/Units 02:50 Sodium 134 (133-145) mmol/L Potassium 4.1 (3.3-5.1) mmol/L Chloride 97 (96-108) mmol/L Carbon Dioxide 26 (22-30) mmol/L BUN 10 (8-23) mg/dl Creatinine 0.4 L (0.6-1.1) mg/dl Glucose 107 H (70-105) mg/dL Calcium 8.3 L (8.6-10.4) mg/dl AST 20 (0-37) U/l ALT 17 (0-40) U/l Alkaline Phosphatase 85 (39-117) U/L Total Protein 5.8 L (5.9-8.4) gm/dL Albumin 2.9 L (3.2-5.2) gm/dL Triglycerides 182 H (<150) mg/dl Calcium panel 05/29/16 Range/Units 02:50 Calcium 8.3 L (8.6-10.4) mg/dl Phosphorus 3.2 (2.7-4.5) mg/dL Albumin 2.9 L (3.2-5.2) gm/dL Pituitary panel 05/29/16 Range/Units 02:50 Sodium 134 (133-145) mmol/L Potassium 4.1 (3.3-5.1) mmol/L Chloride 97 (96-108) mmol/L Carbon Dioxide 26 (22-30) mmol/L BUN 10 (8-23) mg/dl Creatinine 0.4 L (0.6-1.1) mg/dl Glucose 107 H (70-105) mg/dL Calcium 8.3 L (8.6-10.4) mg/dl Adrenal panel 05/29/16 Range/Units 02:50 Sodium 134 (133-145) mmol/L Potassium 4.1 (3.3-5.1) mmol/L Chloride 97 (96-108) mmol/L Carbon Dioxide 26 (22-30) mmol/L BUN 10 (8-23) mg/dl Creatinine 0.4 L (0.6-1.1) mg/dl Glucose 107 H (70-105) mg/dL Calcium 8.3 L (8.6-10.4) mg/dl Total Bilirubin 0.2 (0.0-1.0) mg/dL AST 20 (0-37) U/l ALT 17 (0-40) U/l Alkaline Phosphatase 85 (39-117) U/L Total Protein 5.8 L (5.9-8.4) gm/dL Albumin 2.9 L (3.2-5.2) gm/dL Medical - PN: A/P - Time Spent With Patient Total time spent is greater than 50% in coordination of care (as documented) at patient's floor/unit and/or counseling patient: Stable from wound care point of view. CPT and wound care. Greater than 35 minutes (1) Decubitus ulcer of perianal region, stage 3 Status: Chronic Current Visit: Yes
[2016-05-29] MEDS: ATENOLOL 50 MG TABLET PO SCH (10:03)
[2016-05-29] MEDS: DOCUSATE SODIUM 100 MG CAPSULE PO SCH ×3 (10:04→20:41)
[2016-05-29] MEDS: HEPARIN 5,000 UNIT/ML VIAL SQ SCH ×2 (10:05→22:39)
[2016-05-29] MEDS: LISINOPRIL 20 MG TABLET PO SCH (10:05)
[2016-05-29] MEDS: amLODIPine 10 MG TABLET PO SCH (10:05)
[2016-05-29] MEDS: VANCOMYCIN 1,000 MG in 0.9 % SODIUM CHLORIDE 250 ML IV SCH ×2 (10:05→20:37)
[2016-05-29] MEDS: GENTAMICIN SULFATE 40 MG, CLINDAMYCIN 300 MG, BACITRACIN 25,000 UNIT in SODIUM CHLORIDE... IRR SCH ×3 (10:06→22:39)
--- NOTE | 2016-05-29 14:12 | XRay Report ---
CLINICAL INFORMATION: Elevated white blood cell count COMPARISON: 05/23/2016 portable chest FINDINGS: The heart is mildly enlarged, but unchanged. Mediastinum and pulmonary vessels are normal. Is minor atelectasis seen in the left base remainder lungs are clear. No effusions. IMPRESSION: Mild cardiomegaly and minor left basilar atelectasis Interpreted and Authenticated by: Nathan Willingham 05/29/16
[2016-05-29 14:42] LABS: Appearance,Urine CLEAR; Bilirubin,Urine NEG (NEG); Color,Urine STRAW; Glucose,Urine (UA) 50 mg/dL (NEG); Leukocyte Esterase,Urine NEG /uL (NEG); Nitrate,Urine NEG (NEG); Protein,Urine NEG (NEG); Urine Blood NEG mg/dL (<0.03); Urobilinogen,Urine NEG (NEG)
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
[2016-05-29] MEDS: SENNOSIDES 1 TABLET PO SCH (20:41)
[2016-05-30] MEDS: BACLOFEN 10 MG TABLET PO PRN ×4 (00:01→22:44)
[2016-05-30] MEDS: OXYBUTYNIN CHLORIDE 5 MG TABLET PO SCH ×4 (02:41→17:58)
[2016-05-30] MEDS: 0.9 % SODIUM CHLORIDE 1,000 ML IV SCH ×3 (03:19→12:23)
[2016-05-30] MEDS: ONDANSETRON 4 MG/2 ML VIAL IV PRN (04:53)
[2016-05-30] MEDS: 0.9 % SODIUM CHLORIDE 10 ML SYRINGE IV SCH ×3 (05:27→22:48)
[2016-05-30] MEDS: metroNIDAZOLE 500 MG/100 ML BAG IV SCH ×2 (05:28→14:36)
[2016-05-30] MEDS: IMIPENEM/CILASTATIN SODIUM 1,000 MG in 0.9 % SODIUM CHLORIDE 250 ML IV SCH ×2 (08:17→15:44)
[2016-05-30] MEDS: ACETAMINOPHEN 325 MG TABLET PO PRN ×3 (08:33→22:44)
[2016-05-30] MEDS: HEPARIN 5,000 UNIT/ML VIAL SQ SCH ×2 (08:33→22:46)
[2016-05-30] MEDS: DOCUSATE SODIUM 100 MG CAPSULE PO SCH ×3 (08:34→22:48)
[2016-05-30] MEDS: ATENOLOL 50 MG TABLET PO SCH (08:34)
[2016-05-30] MEDS: POTASSIUM CHLORIDE 10 MEQ TABLET PO SCH ×4 (08:34→18:17)
[2016-05-30] MEDS: amLODIPine 10 MG TABLET PO SCH (08:34)
[2016-05-30] MEDS: LISINOPRIL 20 MG TABLET PO SCH (08:35)
[2016-05-30] MEDS ORDERED: IOPAMIDOL 100 ML BOTTLE IV ONE (09:52)
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
[2016-05-30] MEDS: VANCOMYCIN 1,000 MG in 0.9 % SODIUM CHLORIDE 250 ML IV SCH (10:51)
[2016-05-30] MEDS: GENTAMICIN SULFATE 40 MG, CLINDAMYCIN 300 MG, BACITRACIN 25,000 UNIT in SODIUM CHLORIDE... IRR SCH ×3 (12:22→22:46)
--- NOTE | 2016-05-30 12:46 | Cat Scan Report ---
CLINICAL INFORMATION: Elevated white blood cell count and fever. No abscess COMPARISON: None. TECHNIQUE: Following enteric contrast, 80 cc of Isovue-300 were injected intravenously, and 60 seconds later, 2.5 mm helical slices were obtained from the mid heart through the subtrochanteric regions. Following reconstruction, 2.5 mm sagittal, coronal and axial reformatted images were processed and reviewed at bone, lung and soft tissue windows. Five minutes later, 5 mm helical slices were obtained from the mid heart through the kidneys and viewed at soft tissue windows. FINDINGS: Lung bases show mild bibasilar atelectasis and small bilateral pleural effusions. The visualized heart is grossly normal Images should the abdomen show the gallbladder is surgically absent. Intrahepatic and common bile ducts are normal caliber. The liver, both kidneys, adrenal glands, spleen, pancreas and aorta, including aortic branches, are normal in size configuration and attenuation without focal lesion. Images should the pelvis show a suprapubic catheter within the urinary bladder - the urinary bladder is otherwise normal. Hysterectomy changes are noted. There is a complex cystic 6 cm fluid collection in the subcutaneous gluteal region adjacent to the inferior cleft. A second 8 cm abscess is seen in the subcutaneous perineum - inferior to this region There is a third right subcutaneous peritoneal abscess spanning 7 cm and contains gas. In addition, there is a 3.7 cm fluid collection on the right side in the deeper soft tissues, adjacent to the right inferior pubic ramus, which is partially eroded and may be secondarily infected. Partial sigmoid colectomy with sigmoid. And Pierre's pouch noted. The remainder of the colon small bowel stomach are normal. 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 There is also appear to be excessive fluid in this region presumably this is fibrotic. On the left side there is also chronic partial osteolytic destruction of the femoral head and neck which is chronically dislocated. There is also a ununited old fracture in the intertrochanteric region. IMPRESSION: 1. 6 cm perineal abscess in the subcutaneous fat adjacent to the distal left rectum and anterior urethra. Just distally, a second 7.8 cm abscess is seen in the subcutaneous fat of the inferior left gluteal region. A third 6.8 cm abscess is seen in the right inferior perineum which contains gas. A fourth (3.7 cm) fluid collection is noted in the deep right perineal region, adjacent to the inferior right pubic symphysis. The inferior pubic ramus may be secondarily infected. There is also a very large crevice type ulceration in the right gluteal region which spans 2 x 8 cm. 2. Partial sigmoidectomy, colostomy and Pierre's pouch creation 3. 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 There is only fibrotic changes in the hip joint region - no evidence of septic arthritis. On the left side, there is also chronic osteolytic destruction of the femoral head and a old ununited fracture across the femoral neck base with chronic dislocation. There appears to be fibrosis in the surrounding tissue - no evidence of inflammation. Interpreted and Authenticated by: Nathan Willingham 05/30/16
[2016-05-30] MEDS ORDERED: ACETAMINOPHEN 325 MG TABLET PO PRN (15:02)
[2016-05-30] MEDS ORDERED: BACLOFEN 10 MG TABLET PO PRN (15:03)
[2016-05-30] MEDS ORDERED: ACETAMINOPHEN 325 MG TABLET PO ONE (15:06)
[2016-05-30] MEDS ORDERED: BISACODYL 10 MG SUPP.RECT PR PRN (16:10)
[2016-05-30] MEDS ORDERED: MAGNESIUM HYDROXIDE 30 ML ORAL.SUSP PO PRN (16:12)
[2016-05-30] MEDS ORDERED: FLEETS ADULT ENEMA PR PRN (16:13)
[2016-05-30] MEDS ORDERED: ONDANSETRON 4 MG/2 ML VIAL IV PRN (16:13)
[2016-05-30] MEDS ORDERED: 0.9 % SODIUM CHLORIDE 1,000 ML IV SCH ×2 (16:15)
[2016-05-30] MEDS ORDERED: SENNOSIDES 1 TABLET PO SCH (21:00)
--- NOTE | 2016-05-30 21:09 | General Surgery Progress Note ---
Subjective Narrative: Note initiated : 05/30/16 at 8:50 pm Service Date, if different from initiated Date: [] Patient: Tierra Loco 61 y/o F admitted on 05/23/16 for Buttock Wound , Cellulitis, Sepsis. Chief Complaint: [] I saw this patient in the morning along with nursing staff. There were NO interval changes in examination. Patient had undergone a CT scan of abdomen and pelvis which reportedly referred to a 6 CM collection outside of the abdomen, pelvis towards the open wound surface. Patient was enquiring as to whether she needs another surgery. I reviewed this CT scan along with Dr. ARVIZU Radiologist. We discussed patient's history, current on going treatment and preexisting co morbid conditions and her wound management situation. It is felt that patient will NOT benefit from any radiological intervention and that she does NOT need another surgery for this problem. It is best treated with regular dressing changes and on going local care. This area is accessible tor cleansing and dressing with antibiotic soaked wet to dry dressings. This was demonstrated to nursing staff. Tomorrow morning we will go voer this patient's sister as well. [facility] was contacted to transfer this patient . BUT they declined . At this point we had a joint detailed face to face discussion with patient, her sister and CG, myself, Dr. Daly General Surgery, Hospitalist, Automobile Body Repair Chief, RN I/C and the nurse caring for the patient. Different case scenarios and PALLIATIVE care options were discussed to help patient and her sister and to assist with supplies , dressings and transportation needs. Visiting home health nurse, hospice nurse services will be enlisted. Possibility of patient DYING from her co morbid conditions or sepsis therefrom with multiple organ failure was discussed at length in a straight forward way. Patient and her sister wound like for Tierra to be taken home tomorrow. Objective Temp Pulse Resp BP Pulse Ox 98.7 F 60 16 139/58 93 05/30/16 16:00 05/30/16 16:00 05/30/16 16:00 05/30/16 16:00 05/30/16 16:00 - Additional Data Intake & Output - Last 24 hours: Intake & Output 05/28/16 05/29/16 05/30/16 05/31/16 05:59 05:59 05:59 05:59 Intake Total 3690 / 3690 1750 / 1750 5403 / 5403 1190 / 1190 Output Total 5300 / 5300 900 / 900 3850 / 3850 1475 / 1475 Balance -1610 / -1610 850 / 850 1553 / 1553 -285 / -285 Weight 205 lb 8 oz 205 lb 206 lb 8 oz - Labs 05/29/16 02:50 05/29/16 02:50 Medical - PN: A/P - Time Spent With Patient Total time spent is greater than 50% in coordination of care (as documented) at patient's floor/unit and/or counseling patient: (1) Decubitus ulcer of perianal region, stage 3 Status: Chronic Current Visit: Yes
[2016-05-30] MEDS ORDERED: 0.9 % SODIUM CHLORIDE 10 ML SYRINGE IV SCH (22:00)
[2016-05-31] MEDS: OXYBUTYNIN CHLORIDE 5 MG TABLET PO SCH ×2 (00:39→05:49)
[2016-05-31] MEDS: 0.9 % SODIUM CHLORIDE 10 ML SYRINGE IV SCH (05:50)
[2016-05-31] MEDS: BACLOFEN 10 MG TABLET PO PRN (06:47)
[2016-05-31] MEDS: ACETAMINOPHEN 325 MG TABLET PO PRN (06:48)
[2016-05-31] MEDS: DOCUSATE SODIUM 100 MG CAPSULE PO SCH (07:54)
[2016-05-31] MEDS: POTASSIUM CHLORIDE 10 MEQ TABLET PO SCH (07:54)
[2016-05-31] MEDS: HEPARIN 5,000 UNIT/ML VIAL SQ SCH (08:34)
[2016-05-31] MEDS ORDERED: amLODIPine 10 MG TABLET PO SCH (09:00)
[2016-05-31] MEDS ORDERED: LISINOPRIL 20 MG TABLET PO SCH (09:00)
[2016-05-31] MEDS ORDERED: ATENOLOL 50 MG TABLET PO SCH (09:00)
[2016-05-31] MEDS: GENTAMICIN SULFATE 40 MG, CLINDAMYCIN 300 MG, BACITRACIN 25,000 UNIT in SODIUM CHLORIDE... IRR SCH (09:33)
--- NOTE | 2016-05-31 09:36 | General Surgery Progress Note ---
Subjective Patient reports: no new complaints Narrative: Note initiated : 05/31/16 at 9:33 am Service Date, if different from initiated Date: [] Patient: Tierra Loco 61 y/o F admitted on 05/23/16 for Buttock Wound , Cellulitis, Sepsis. Chief Complaint: []I saw patient this morning and went over her vital signs and reviewed her care overnight with nursing staff. Patient tells me that she did not sleep well at times. yesterday. DENIES F/N/V/D/SOB/COUGH/CP OR Palpitations. Objective Temp Pulse Resp BP Pulse Ox 97.3 F L 74 18 138/64 94 05/31/16 08:29 05/31/16 08:29 05/31/16 08:29 05/31/16 08:29 05/31/16 08:29 NO Fever. NO tachycardia or tachypnea. good cough. No expectoration. I CHANGED HER DRESSINGS with help of Patricia GARCIA. Patient's sister and CG at home was present during dressing change. FIRST, in supine position, Patient was log rolled uneventfully to LEFT lateral position. The wounds and pockets over the ischial tuberosity and adjacent area were manually washed and cleansed. The white flakes over the skin and along wound edges were wiped clean. THERE WAS NO EVIDENCE of purulence, leakage of urine or stool from this area. TH open wound extends up to right labia. All the pockets were unroofed and demarcating fat was cleaned. NEXT, I packed this lightly with unfolded AMD Kerlix gauze soaked in GCP antibiotic solution. Packing was held in place with ABD pad and tape. Later the patient was rolled back to supine position. Once again I examined the genital area Left labia and groin skin folds. NO evidence of odor, drainage, bleeding or purulence noted. Supra pubic catheter site is clean and urine is clear. Abdomen is soft NT and there is well formed stool in bag. Rest of her examination is unremarkable. No interval changes or developments, - Additional Data Intake & Output - Last 24 hours: Intake & Output 05/29/16 05/30/16 05/31/16 06/01/16 05:59 05:59 05:59 05:59 Intake Total 1750 / 1750 5403 / 5403 1940 / 1940 350 / 350 Output Total 900 / 900 3850 / 3850 3725 / 3725 150 / 150 Balance 850 / 850 1553 / 1553 -1785 / -1785 200 / 200 Weight 205 lb 206 lb 8 oz 210 lb 8 oz - Labs 05/29/16 02:50 05/29/16 02:50 Medical - PN: A/P - Time Spent With Patient Total time spent is greater than 50% in coordination of care (as documented) at patient's floor/unit and/or counseling patient: CHRONIC NON CURABLE PRESSURE ULCER WOUNDS IN A PARAPLEGIC PATIENT. Adequately drained , debrided and packed open. Patient's nutritional status is optimal. NO hemodynamic or cardiac, respiratory or GI issues at this time. Patient's sister asked me IF Tierra will EVER be able to sit again an chair. I CAN NOT answer this question. Spoke with Rosanna RUELAS. Any help given to patient is appreciated. Patient or her sister CG may call wound center after discharge for any questions or assistance . Greater than 35 minutes (1) Decubitus ulcer of perianal region, stage 3 Status: Chronic Current Visit: Yes
--- NOTE | 2016-05-31 10:33 | Discharge Summary ---
Medical - DS: Prov Patient information: Note initiated : 05/31/16 at 10:31 am Service Date, if different from initiated Date: [] Patient: Tierra Loco 61 y/o F admitted on 05/23/16 for Buttock Wound , Cellulitis, Sepsis. Chief Complaint: [] Date of admission: 05/23/16 19:16 Discharge date: 05/31/16 Primary care physician: [Dr. [place] Cheung [facility] [id number]] Admitting clinician: Uday Ardon Consults: 05/27/16 16:47 Consult to Physician [CONS] Routine Comment: Consulting Provider: Magdiel Edward Reason For Exam: Physician to Consult 05/28/16 11:38 Consult to Physician [CONS] Routine Comment: Consulting Provider: Magdiel Edward Reason For Exam: Physician to Consult 05/24/16 10:13 Consult to Physician [CONS] Routine Comment: Consulting Provider: Kaor Motta Reason For Exam: Physician to Consult Dr. Francisco Daly, consulted to review CT scan. Attending physician on discharge: Negar Cuellar Medical - DS: Meds - Discharge Medications Prescriptions: Amoxicillin/Potassium Clav [Augmentin] 875 mg PO BIDCC #28 tablet Active and Home Medications: Home Medications Ascorbic Acid [Vitamin C with Victoria Hips] 500 mg PO QDAY 05/23/16 [History Confirmed 05/23/16 Last Taken Unknown] Ferrous Gluconate [Fergon] 240 mg PO DAILY 05/23/16 [History Confirmed 05/23/16 Last Taken Unknown] 0.9 % Sodium Chloride [Saline Flush] 10 ml IV Q8 syringe 05/30/16 [Rx Last Taken Unknown] Acetaminophen [Tylenol] 325 mg PO Q4HP PRN #0 tablet 05/30/16 [Rx Last Taken Unknown] Bacitracin 25,000 unit IRR TID vial 05/30/16 [Rx Last Taken Unknown] Baclofen [Lioresal] 20 mg PO QIDP PRN #0 tablet 05/30/16 [Rx Last Taken Unknown] Bisacodyl [Dulcolax] 10 mg OH Q2-3DAYS PRN #0 supp.rect 05/30/16 [Rx Last Taken Unknown] Clindamycin [Cleocin] 300 mg IRR TID vial 05/30/16 [Rx Last Taken Unknown] Docusate Sodium [Colace] 100 mg PO BID capsule 05/30/16 [Rx Last Taken Unknown] Gentamicin Sulfate 40 mg IRR TID vial 05/30/16 [Rx Last Taken Unknown] Heparin 5,000 unit SQ Q12 vial 05/30/16 [Rx Last Taken Unknown] Imipenem/Cilastatin Sodium [Primaxin] 1,000 mg IV Q8H vial 05/30/16 [Rx Last Taken Unknown] Lisinopril [Zestril] 40 mg PO DAILY tablet 05/30/16 [Rx Last Taken Unknown] Magnesium Hydroxide [Milk of Magnesia] 30 ml PO DAILYP PRN #0 oral.susp [Rx Last Taken Unknown] Sennosides [Senokot] 1 tab PO QHS tablet 05/30/16 [Rx Last Taken Unknown] Vancomycin 1,000 mg IV Q12H vial 05/30/16 [Rx Last Taken Unknown] Active Medications Acetaminophen (Tylenol) 325 mg PO Q4HP PRN PRN Reason: PAIN/FEVER > 101 Last Admin: 05/31/16 06:48 Dose: 325 mg Amlodipine Besylate (Norvasc) 10 mg PO DAILY [facility] Last Admin: 05/31/16 08:34 Dose: 10 mg Amoxicillin/[facility]avulanate [facility] Atenolol (Tenormin) 25 mg PO DAILY [facility] Last Admin: 05/31/16 08:34 Dose: 25 mg Baclofen (Lioresal) 20 mg PO QIDP PRN PRN Reason: Spasms Last Admin: 05/31/16 06:47 Dose: 20 mg Bisacodyl (Dulcolax) 10 mg OH Q2-3DAYS PRN PRN Reason: Constipation Docusate Sodium (Colace) 100 mg PO BID [facility] Last Admin: 05/31/16 07:54 Dose: Not Given Heparin Sodium (Porcine) (Heparin) 5,000 unit SQ Q12 [facility] Last Admin: 05/31/16 08:34 Dose: 5,000 unit Gentamicin Sulfate 40 mg/Clindamycin Phosphate 300 mg/Bacitracin 25,000 unit/ Sodium Chloride 503 mls @ 0 mls/hr IRR TID [facility] PRN Reason: As Directed Last Admin: 05/31/16 09:33 Dose: 10 mls/hr Lisinopril (Zestril) 40 mg PO DAILY [facility] Last Admin: 05/31/16 08:33 Dose: 40 mg Magnesium Hydroxide (Milk Of Magnesia) 30 ml PO DAILYP PRN PRN Reason: Constipation Ondansetron HCl (Zofran) 4 mg IV Q6HP PRN PRN Reason: Nausea And Vomiting Oxybutynin Chloride (Ditropan) 5 mg PO Q6 [facility] Last Admin: 05/31/16 05:49 Dose: 5 mg Potassium Chloride (Kdur) 10 meq PO TIDCC [facility] Last Admin: 05/31/16 07:54 Dose: Not Given Senna (Senokot) 1 tab PO QHS [facility] Last Admin: 05/30/16 22:48 Dose: Not Given Sodium Biphosphate/Sodium Phosphate (Fleets Adult) 1 dose OH Q3-4DAYS PRN PRN Reason: Constipation Sodium Chloride (Saline Flush) 10 ml IV Q8 [facility] Last Admin: 05/31/16 05:50 Dose: 10 ml Medical - DS: Hosp Hospital course: Ms. Loco is a 61 year old female for full details on hospital course please refer to the discharge summary dictated from yesterday, May 30, 2016. 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 She had extensive debridementdone, and since then has been receiving local wound care. Her cultures grew multiple organisms , as expected, and she has been maintained onIV antibiotics including imipenem, Flagyl, and vancomycin. Her white blood cell count initially came down a bit, and then climbed again, so a CT scan was done yesterday unfortunately, this shows numerous new abscesses in the general area of her recent debridement, some of which were very large. We had been planning on sending her to the [facility] facility for long-term wound care, but the doctor there felt that she wanted the abscesses addressed before sending her. We then had a group consultation with Dr. Edward of wound care, Dr. Francisco Daly of general surgery Dr. Munoz from [facility], about the appropriate treatment of her abscesses. All of the surgeons agreed that this is not a fixable problem. They felt that it was notreasonable to have the patient undergo more aggressive surgery,when it isfairly certain that the infection will continue to spread, and is not ultimately curable. Dr. Edward, Dr. Daly, nursing staff, case management staffand I met with the patient and her sister, to explain the situation. It was explained that this wound will likely just continue to become infected,and that t may ultimately cause her . the patient and her sister elected to have her return home, where the sister will continue the local wound care suggested by Dr. Edward. IV antibiotics have been discontinued. She will continue with the triple antibiotic irrigation solution to do wet-to-dry dressings and packed the wound as dr. Edward taught her. I will also start her on oral Augmentin, as most of the organisms should be sensitive to this. The patient is advised that if she develops fever or other signs of infection, or any other problems, that she can contact either her primary care physician or Dr. Edward. We will also arrange for home health to go out for any support they can, including reviewing that kind of bed she is on, to see if we can get her a bed to help manage her wounds. Dr. Edward would like her to not sit or lie on the wound at all if possible. - Time Spent with Patient Total time spent providing and/or coordinating discharge services: Medical - DS: Exam - Constitutional Vitals: Vital Signs Temp Pulse Pulse Resp BP Pulse Ox 05/31/16 08:29 97.3 F L 74 18 138/64 94 05/31/16 08:00 60 76 18 96 05/31/16 04:00 97.4 F L 76 18 148/64 96 05/30/16 23:59 98.4 F 80 18 138/58 05/30/16 20:00 99.1 F 64 16 134/60 05/30/16 19:45 18 95 05/30/16 16:00 98.7 F 60 16 139/58 93 05/30/16 13:01 98.7 F 73 16 139/54 93 05/30/16 12:00 98.7 F 73 16 139/54 93 Intake and Output 05/30/16 05/31/16 05/31/16 21:59 05:59 13:59 Intake Total 750 / 750 350 / 350 680 / 680 Output Total 250 / 250 1999 / 1999 150 / 150 Balance 500 / 500 -1650 / -1650 530 / 530 Intake: IV 350 / 350 Sodium Chloride 0.9% 250 250 / 250 ml @ 250 mls/hr IV Q8H DIANA with Primaxin 1,000 mg Rx#:[id number] Oral 400 / 400 350 / 350 680 / 680 Output: Urine Catheter Amount 1999 / 1999 Stool 250 / 250 150 / 150 Other: Meal Dinner Nourishment/Supplement Percent of Meal Consumed 75% 50% Feeding Ability Assist with Tray Set Up Independent Weight 210 lb 8 oz Additional comments: on exam today, the patient is awake and alert, and in no acute distress. Neck is supple without lymphadenopathy or JVD. Cardiac exam shows regular rate and rhythm. Lungs are clear to auscultation. Abdomen is soft and nontender with normal bowel sounds.The wound is not reexamined by me today, as Dr. Edward removed her packing today and reviewed with the sister how to repack it and dress it. Extremities show no edema. Heels are in heel protectors. Medical - DS: Data Labs on day of discharge: cT scan dated May 30, 2016: 76 cm perineal abscess in the subcutaneous fat adjacent to the distal left rectum. Also a second 7.8 cm abscess in the subcutaneous fat of the left gluteal region. A third 6.8 cm abscess is seen in the right inferior. Medium which contains gas. A fourth collection is noted in the deep right perineal region adjacent to the right pubic symphysis and the pubic ramus may be secondarily infected. cBC from yesterday showed white blood cell count 21,900, hemoglobin 11, hematocrit 35, platelets 277,000. 83% granulocytes. Absolute granulocyte countwas 18,000, up from 15.7 the day prior. chemistry panel from May 29: Shows normal electrolytes, with creatinine of 0.4 glucose of 107, total calcium 8.3GGT is elevated at 80, and a bit lower than prior. AST and ALT and alkaline phosphatase are all within normal limits. LDH is elevated at 327, but improved from previous days. Total protein is low at 5.8, albumin low at 2.9 Triglycerides elevated at 182 Wound culture from May 24, is growing staph aureus, enterococcus, and strep viridans, with sensitivities pending. staph is sensitive to Augmentin, Ancef, gentamicin, Levaquin, meropenem, vancomycin. Enterococcus is sensitive to ampicillin, penicillin, vancomycin. Wound culture from May 23, grew staph aureus, sensitive to Augmentin, Ancef , gentamicin, Levaquin, meropenem oxacillin, rifampin, Bactrim, Zosyn, vancomycin but resistant to clindamycin and erythromycin CT of the pelvis from May 23, 2016: Showed multiloculated abscess located far posteriorly and deep in the right labia majora, extending to the right side of the anus, with gas in the labia indicating necrotizing fasciitis. chest x-ray from May 23 was read as no acute disease. chest x-ray from May 29, 2016: Shows mild cardiomegaly, and minor left basilar atelectasis. Medical - DS: A/P - Patient/Caregiver Discharge Instructions Activity: as instructed Diet: Cardiac Additional Instructions: Follow up with Dr. Cheung. Contact office on Friday 06/02 to schedule. [phone] Follow up with the Wound Care clinic. Contact office on Friday 06/02 to schedule. [phone] Activity as tolerated. Increase as tolerated Consistent carbohydrate diet Clean wound bed with normal saline. Pack with GCP (antibiotic solution) wet to dry dressing and cover with ABD pad and omnifix tape. Return to ER for fever, chills, shortness of breath, nausea/vomiting, change in wound appearance. Fill prescriptions as ordered by Hospitalist. - Follow up Plan Follow up with: Uday Ardon MD [Physician] - Tang Cheung MD [Primary Care Provider] - Disposition: Home Health Service Prognosis: Serious Rehab Potential: Serious Overall status at discharge: patient is not back to baseline Medical - DS: Qual - VTE Deep Vein Thrombosis/Pulmonary Embolism Present on Admission: No
[2016-05-31] MEDS ORDERED: AMOXICILLIN/POTASSIUM CLAV 875 MG TABLET PO SCH (17:30)
== END 2016-05-31 11:10 | disposition home health service (06) | DRG 853 ==
LOC: ED 16:14 → MEDSUR 19:15 → SUATTDRO 19:16 → MEDSUR 19:16 → ICU 05-24 16:00 → UNDODISIN 05-30 12:55 → MEDSUR 05-30 13:41
PROVIDERS: ADMIT Internal Medicine; ATTEND Internal Medicine